=== PATIENT | female | born 1995 | race Caucasian/White ===

== ENCOUNTER 2019-01-31 00:55 | Emergency (ER) | payer SELFPAY ==
[2019-01-31 00:55] VITALS: BP 126/72; PULSE 84; RESP 18; TEMP 36.2; O2SAT 98; BMI 23.3
--- NOTE | 2019-01-31 01:45 | RAD_ITS ---
STUDY: X-RAY - LUMBAR SPINE REASON FOR EXAM: Female, 23 years old. PT FELL DOWN STAIRS TONIGHT, LOWER BACK PAIN RADIATING INTO RT HIP TECHNIQUE: 3 view(s) of the lumbar spine were obtained. COMPARISON: None FINDINGS: Normal lumbar lordosis. There is no substantial scoliosis. There is a normal alignment of the vertebrae. Normal vertebral bodies and endplates. Normal disc space heights. There is no demonstrated fracture. The soft tissue structures are unremarkable. RAD/Lumbar Spine 2 or 3 Views IMPRESSION: Normal x-ray examination of the lumbar spine. Electronically Signed: Sveta Mesa MD at 2:16 EST , Service support ,
--- NOTE | 2019-01-31 01:45 | RAD_ITS ---
STUDY: X-RAY - CERVICAL SPINE REASON FOR EXAM: Female, 23 years old. PT FELL DOWN STAIRS TONIGHT, NECK PAIN, TRAUMA TECHNIQUE: 4 view(s) of the cervical spine were obtained. COMPARISON: None FINDINGS: Normal anterior atlantoaxial articulation. Normal odontoid process. There is reversal of the normal cervical lordosis. There is wedging of C5 vertebral body suggestive of compression fracture, exact age indeterminate. Normal disc space heights. Normal visualized intervertebral neuroforamina. The soft tissue structures are unremarkable. RAD/Cerv Spine 2 or 3 Views IMPRESSION: Wedging of the C5 vertebral bodies suggestive of compression fracture versus superimposition artifact. No subluxation seen. Reversal of physiological cervical lordosis which may be due to vascular spasm. If indicated, these findings may be further evaluated with CT of the cervical spine. Electronically Signed: Sveta Mesa MD at 2:45 EST , Service support ,
--- NOTE | 2019-01-31 01:45 | RAD_ITS ---
STUDY: X-RAY - PELVIS AND RIGHT HIP REASON FOR EXAM: Female, 23 years old. PT FELL DOWN STAIRS TONIGHT, LOWER BACK PAIN RADIATING INTO RT HIP TECHNIQUE: 3 views of the pelvis and hip. COMPARISON: None. FINDINGS: There is a non-specific bowel gas pattern. Normal visualized soft tissue structures. Normal bilateral iliac wings, sacroiliac joints and visualized sacrum. Normal bilateral superior and inferior pubic rami. Normal pubic symphysis. Normal bilateral ischial tuberosities. Normal visualized femoral head. Normal acetabulum. Normal hip joint. RAD/HIP, UNI W/ Pelvis 2-3 Views IMPRESSION: Normal x-ray examination of the pelvis and hip. Electronically Signed: Sveta Mesa MD at 2:29 EST , Service support ,
[2019-01-31 03:03] VITALS: BP 113/70; PULSE 115; RESP 18; O2SAT 98
[2019-01-31] MEDS: Acetaminophen 500 MG Tablet 1000 MG PO (03:03)
[2019-01-31 03:04] VITALS: BP 113/60; PULSE 115; RESP 20; O2SAT 98
--- NOTE | 2019-01-31 03:04 | ED.VISSUMM ---
- ER Visit Summary Date of Service: 01/31/19 Chief Complaint: Fall History of Present Illness: The patient is a 23 F who fell down 1 stair. She landed on her back and right hip. She complains of back and right hip pain. She was drinking alcohol. The fall was witnessed. She did not hit her head or lose consciousness. She is denying head or neck pain. No amnesia or other associated symptoms. No weakness or numbness. No change in bowel or bladder. Physical Examination: Afebrile and vital signs unremarkable. Head and neck atraumatic. Neck is nontender. HEENT exam normal. Cranial nerves grossly intact. Normal strength and sensation except for the right lower extremity which shows decreased strength in all muscle groups secondary to pain in her right hip. Hip shows normal range of motion. No shortening or abnormal rotation. Back is diffusely tender in the lumbar region. Otherwise exam unremarkable. Test Results: X-rays of the lumbar spine and right hip/pelvis are unremarkable. Cervical spine x-rays showed a possible wedging of C5 and also findings concerning for vascular spasm. See below. Emergency Department Course and Treatment: Patient had a mechanical fall while intoxicated. This was witnessed. And her boyfriend is here to provide history. There is no indication to CT her head. Cervical spine was x-rayed secondary to her intoxication. This was read as a possible wedging of C5 and findings concerning for vascular spasm. I reevaluated the patient several hours after she presented. She is more alert. She is clinically sober. She has no tenderness to palpation. No step-offs. Good range of motion. Neurovascularly intact. I have no suspicion clinically for fracture or vascular spasm. X-rays were simply ordered because she was intoxicated and I could not clear her clinically. The remainder of her x-rays were negative. Patient ambulated without difficulty. She was treated with Tylenol. She is appropriate for discharge home. Return for any new or worsening issues. Treatment Plan: As above Disposition: Discharge Impression: 1. Alcohol intoxication 2. Mechanical fall 3. Lumbar contusion This note was generated with [employer] software. It may contain incorrect words, spelling, and punctuation that were not noted in review of the chart prior to signing ED Disposition - Plan for ED Patient: Referrals: Care Physician,No Primary [Primary Care Provider] -
--- NOTE | 2019-01-31 03:08 | ED.DEP ---
ED Disposition - Plan for ED Patient: Instructions: FALL, Mechanical Referrals: Romy Vang [NON-STAFF] -
== END 2019-01-31 03:20 | disposition home or self-care (01) ==
PROVIDERS: Emergency Provider Emergency Medicine
DX: S30.0XXA Contusion of lower back and pelvis, initial encounter (principal); S70.211A Abrasion, right hip, initial encounter; W10.9XXA Fall (on) (from) unspecified stairs and steps, initial encounter; Y93.9 Activity, unspecified; Y92.9 Unspecified place or not applicable; Y99.9 Unspecified external cause status; F10.129 Alcohol abuse with intoxication, unspecified
CPT/HCPCS: 72040; 72100; 73502; 99285